=== PATIENT | female | born 1985 | race Native Hawaiian/Other Pacific Islander ===

== ENCOUNTER 2017-03-11 19:47 | Emergency (ER) | payer OTHER ==
[~2017-03-11] VITALS: Ht 172.7 cm; Wt 113.4 kg
[2017-03-11 20:09] LABS: PLATELET COUNT 445 K/uL (152-353)
[2017-03-11 23:52] VITALS: BP 151/96; TEMP 98.6
== END 2017-03-11 23:55 | disposition home or self-care (01) ==
LOC: ED 19:47
DX: N23 Unspecified renal colic (principal); N20.0 Calculus of kidney; R00.0 Tachycardia, unspecified
CPT/HCPCS: 36415; 80053; 82150; 83690; 85027; 96361; 96374; 96375; 99284; J1885; J2405; J3490; Q9963

== ENCOUNTER 2017-03-14 15:58 | Outpatient (CLI) | payer OTHER | END 2017-03-14 19:06 | disposition home or self-care (01) | LOC: LAB 15:58 | DX: R19.7 Diarrhea, unspecified (principal) | CPT/HCPCS: 82272; 82705; 87015; 87045; 87205; 87324; 87449; 87899 ==

== ENCOUNTER 2017-03-23 08:06 | Outpatient (CLI) | payer OTHER ==
[2017-03-23 10:35] VITALS: BP 143/96; TEMP 97.6
[2017-03-23 13:10] VITALS: BP 120/84; TEMP 97.7
== END 2017-03-23 13:10 | disposition home or self-care (01) ==
LOC: NM 08:06 → INF 08:06 → NM 11:00
DX: R10.11 Right upper quadrant pain (principal); R11.0 Nausea; E86.0 Dehydration
CPT/HCPCS: 96360; 96361; A9537

== ENCOUNTER 2017-04-13 10:24 | Outpatient (CLI) | payer OTHER ==
[2017-04-13 11:07] LABS: POTASSIUM 3.3 mmol/L (3.6-5.2); SODIUM 139 mmol/L (136-145)
== END 2017-04-13 19:42 | disposition home or self-care (01) ==
LOC: LABW 10:24
PROVIDERS: Nurse Practitioner Family
DX: E87.6 Hypokalemia (principal)
CPT/HCPCS: 36415; 80053

== ENCOUNTER 2017-04-18 10:59 | Outpatient (CLI) | payer OTHER ==
[2017-04-18 11:29] LABS: POTASSIUM 3.8 mmol/L (3.6-5.2); SODIUM 138 mmol/L (136-145)
== END 2017-04-18 19:30 | disposition home or self-care (01) ==
LOC: LABW 10:59
PROVIDERS: Nurse Practitioner Family
DX: I10 Essential (primary) hypertension (principal); E87.6 Hypokalemia
CPT/HCPCS: 36415; 80053

== ENCOUNTER 2017-05-12 15:48 | Outpatient (CLI) | payer OTHER ==
[2017-05-13] MEDS ORDERED: BENICAR HCT1 TAB PO (00:27)
== END 2017-05-12 19:34 | disposition home or self-care (01) ==
LOC: RAD 15:48
DX: M54.5 Low back pain (principal); M54.6 Pain in thoracic spine

== ENCOUNTER 2017-05-13 | Emergency (ER) | payer OTHER ==
[~2017-05-13] VITALS: Ht 170.2 cm; Wt 108.9 kg
[2017-05-13] MEDS ORDERED: BENICAR HCT1 TAB PO (00:27)
[2017-05-13 00:46] LABS: PLATELET COUNT 337 K/uL (152-353)
[2017-05-13 00:57] LABS: POTASSIUM 3.6 mmol/L (3.6-5.2)
[2017-05-13 02:31] VITALS: BP 118/82; TEMP 98.2
== END 2017-05-13 02:35 | disposition home or self-care (01) ==
LOC: ED
DX: R10.9 Unspecified abdominal pain (principal); N20.0 Calculus of kidney; I10 Essential (primary) hypertension; L72.3 Sebaceous cyst; R00.0 Tachycardia, unspecified; K57.30 Diverticulosis of large intestine without perforation or abscess without bleeding; N83.11 Corpus luteum cyst of right ovary
CPT/HCPCS: 36415; 80053; 81000; 83605; 84484; 85027; 85379; 87086; 87088; 93005; 96374; 96375; 99284; J1885; J2175; J3490; Q9963

== ENCOUNTER 2019-11-28 21:40 | Emergency (ER) | payer OTHER ==
[~2019-11-28] VITALS: Ht 172.7 cm; Wt 113.4 kg
[~2019-11-28 21:40] MED LIST: BENICAR HCT1 TAB PO
[2019-11-28 22:51] LABS: PLATELET COUNT 187 K/uL (152-353)
[2019-11-28 23:09] LABS: PARTIAL THROMBOPLASTIN TIME 21.6 SECONDS (24.5-33.6)
[2019-11-28 23:45] VITALS: TEMP 98.9
[2019-11-29 01:30] VITALS: BP 110/77
== END 2019-11-29 01:58 | disposition short-term general hospital (02) ==
LOC: ED 21:40
PROVIDERS: Hospitalist
PROC: 0T9B70Z Drainage of Bladder with Drainage Device, Via Natural or Artificial Opening (ICD-10-PCS; principal; 2019-11-28)
DX: G93.49 Other encephalopathy (principal); N17.9 Acute kidney failure, unspecified; E86.0 Dehydration; E87.0 Hyperosmolality and hypernatremia
CPT/HCPCS: 36415; 36600; 51702; 80053; 80307; 80320; 81000; 81025; 82550; 82805; 83605; 83880; 84484; 85027; 85610; 85730; 87040; 93005; 96361; 96365; 99285; J1956

== ENCOUNTER 2019-12-12 15:37 | Emergency (ER) | payer OTHER ==
[~2019-12-12] VITALS: Ht 172.7 cm; Wt 113.4 kg
[2019-12-12 17:04] LABS: PLATELET COUNT 342 K/uL (152-353)
[2019-12-12 17:16] LABS: POTASSIUM 3.5 mmol/L (3.6-5.2)
[2019-12-12 22:20] VITALS: BP 130/78; TEMP 98.5
== END 2019-12-12 23:25 | disposition home or self-care (01) ==
LOC: ED 15:37
PROVIDERS: Hospitalist
DX: K29.60 Other gastritis without bleeding (principal); K29.80 Duodenitis without bleeding
CPT/HCPCS: 80053; 81000; 81025; 82150; 83690; 85027; 96360; 96365; 96374; 96375; 96376; 99284; J1170; J1885; J2405; J2543; Q9963